=== PATIENT | female | born 1945 | race Caucasian/White ===

== ENCOUNTER 2016-05-18 18:04 | Inpatient (IN) | payer MEDICARE ==
[2016-05-18 19:51] LABS: BASOPHIL 0.5 % (0-2); EOSINOPHIL 3.4 % (0-7); HCT 37.6 % (37.0-47.0); HGB 12.3 g/dl (12.5-16.0); LYMPHOCYTE 15.2 % (15-48); MCH 29.6 pg (25.0-31.0); MCHC 32.7 g/dL (32.0-36.0); MCV 90.6 fL (78.0-100.0); MONOCYTE 7.7 % (0-12); MPV 9.3 fL (6.0-9.5); NEUTROPHIL 73.2 % (41-80); PLT 382 K/uL (150-400); RBC 4.15 M/uL (4.20-5.40); RDW 15.3 % (11.5-14.0); WBC 11.6 K/uL (4.0-10.5)
[2016-05-18 19:59] LABS: INR 1.06 (0.9-1.2); PROTHROMBIN TIME 13.4 SECONDS (11.7-14.0); PTT 27.4 SECONDS (23.2-31.4)
[2016-05-18 20:05] LABS: ALBUMIN 4.3 g/dL (3.4-4.8); BILIRUBIN - TOTAL 0.2 mg/dL (0.1-1.0); CREATININE 0.5 mg/dL (0.5-1.0); GLOBULIN (CALCULATION) 3.5 g/dL (2.2-4.2); MAGNESIUM 1.97 mg/dL (1.40-2.10); TOTAL PROTEIN 7.8 g/dL (6.4-8.3)
[2016-05-19 06:13] LABS: BASOPHIL 0.2 % (0-2); EOSINOPHIL 0.1 % (0-7); HCT 36.4 % (37.0-47.0); HGB 12.1 g/dl (12.5-16.0); LYMPHOCYTE 6.1 % (15-48); MCH 30.1 pg (25.0-31.0); MCHC 33.2 g/dL (32.0-36.0); MCV 90.5 fL (78.0-100.0); MONOCYTE 0.8 % (0-12); MPV 9.4 fL (6.0-9.5); NEUTROPHIL 92.8 % (41-80); PLT 342 K/uL (150-400); RBC 4.02 M/uL (4.20-5.40); RDW 15.1 % (11.5-14.0); WBC 8.5 K/uL (4.0-10.5)
[2016-05-19 06:46] LABS: CREATININE 0.4 mg/dL (0.5-1.0); POTASSIUM 4.5 mmol/L (3.5-5.1)
[2016-05-22] MEDS ORDERED: LEVAQUIN750 M1 PO (13:17)
[2016-05-22] MEDS ORDERED: ADVAIR 500-501 EACH INH (13:18)
[2016-05-22] MEDS ORDERED: ATORVASTATIN CA80 MG PO (13:18)
[2016-05-22] MEDS ORDERED: PREDNISONE 10MG10 MG PO (13:18)
[2016-05-22] MEDS ORDERED: IMITREX50 MG PO (13:18)
[2016-05-22] MEDS ORDERED: SPIRIVA18 MCG INH (13:18)
[2016-05-22] MEDS ORDERED: NORVASC5 MG PO (13:22)
[2016-05-22] MEDS ORDERED: BACLOFEN 10MG T10 MG PO (13:22)
[2016-05-22] MEDS ORDERED: SEROQUEL50 MG PO (13:23)
[2016-05-22] MEDS ORDERED: TEGRETOL200 MG PO (13:23)
[2016-05-22] MEDS ORDERED: DICYCLOMINE 10M10 MG PO (13:23)
[2016-05-22] MEDS ORDERED: GABAPENTIN800 MG PO (13:23)
[2016-05-22] MEDS ORDERED: LISINOPRIL40 MG PO (13:24)
[2016-05-22] MEDS ORDERED: DOXEPIN HCL100 MG PO (13:24)
[2016-05-22] MEDS ORDERED: VENTOLIN HFA IN18 GM INH (13:24)
[2016-05-22] MEDS ORDERED: PROTONIX 40MG T40 MG PO (13:24)
[2016-05-22] MEDS ORDERED: PHENERGAN25 M1 PO (13:24)
[2016-05-22] MEDS ORDERED: AZELASTINE205.5 MCG/ (13:25)
[2016-05-22] MEDS ORDERED: ZOLOFT100 M1 PO (13:25)
[2016-05-22] MEDS ORDERED: DITROPAN XL *OUT5 MG PO (13:25)
[2016-05-22] MEDS ORDERED: KLONOPIN0.5 MG PO (13:25)
[2016-05-22] MEDS ORDERED: FLONASE ALLER15.8 ML (13:25)
[2016-05-22] MEDS ORDERED: CLONAZEPAM1 MG PO (13:26)
[2016-05-22] MEDS ORDERED: PERCOCET 10-321 EACH PO (13:26)
[2016-05-22] MEDS ORDERED: VENTOLIN (2.5 MG/3 M NEB (13:26)
== END 2016-05-22 15:20 | disposition home health service (06) | DRG 871 ==
LOC: FOD 18:04 → FMS 18:11
PROVIDERS: ADMIT Internal Medicine
DX: A41.9 Sepsis, unspecified organism (principal); J18.9 Pneumonia, unspecified organism; J96.10 Chronic respiratory failure, unspecified whether with hypoxia or hypercapnia; J44.0 Chronic obstructive pulmonary disease with (acute) lower respiratory infection; J44.1 Chronic obstructive pulmonary disease with (acute) exacerbation; K21.9 Gastro-esophageal reflux disease without esophagitis; F41.9 Anxiety disorder, unspecified; Z99.81 Dependence on supplemental oxygen; K58.9 Irritable bowel syndrome, unspecified; F32.89 Other specified depressive episodes; Z88.0 Allergy status to penicillin; Z88.2 Allergy status to sulfonamides; Z88.1 Allergy status to other antibiotic agents; Z88.5 Allergy status to narcotic agent; F17.210 Nicotine dependence, cigarettes, uncomplicated; I10 Essential (primary) hypertension; Z80.0 Family history of malignant neoplasm of digestive organs; Z80.3 Family history of malignant neoplasm of breast; Z96.653 Presence of artificial knee joint, bilateral
CPT/HCPCS: 36415; 36600; 71010; 80048; 80053; 82803; 83735; 84145; 85025; 85610; 85730; 87070; 87205; 94640; 94668; J1956; J2930